=== PATIENT | female | born 1950 | race Caucasian/White ===

== ENCOUNTER 2021-07-08 20:34 | Emergency (ER) | payer MEDICARE, OTHER ==
[2021-07-08 21:44] VITALS: BP 138/69; PULSE 62
[2021-07-08] MEDS ORDERED: TORAdol 30 mg Injection ONE (21:45)
[2021-07-08 21:48] VITALS: O2SAT 98
--- NOTE | 2021-07-08 21:48 | ERPHSYRPT ---
- History of Present Illness Time Seen by Provider: 07/08/21 20:50 Source: patient Exam Limitations: no limitations Patient Subjective Stated Complaint: C/O pain in right wrist, fingers, lower arm. Describes pain as a "tingling" pain. States she fell at home trying to sit down on a computer chair that had sheets on it making it slick. States, "I heard a pop sound when my right arm hit the floor." Triage Nursing Assessment: Patient ambulated into ER without gait dysfunction noted. Patient is alert and oriented and answering questions appropriately. Right lower arm, wrist, and fingers are normal skin tone; no bruising, skin alterations, swelling, or warmth noted. Radial and Brachial pulses present to RUE. Patient with good capillary refill in fingertips to right hand. Patient is able to bend at the elbow and wiggle fingers without difficulties. She does c/o increased pain when bending at the elbow. Physician History: Patient is a 71-year-old female presents to our ED with complaints of pain to her right wrist and hand area. Patient states she fell off of her computer chair. She was rolling in her chair got caught on sheets that she fell backwards. Patient felt a pop upon impact. No other injuries reported. Pain described as an ache that is localized to her right wrist. Pain worse with movement and palpation. Pain improved with rest. No BHT or LOC. No neck pain. Cervical spine cleared clinically. Symptoms are mild to moderate in intensity. No specific worsening improving factors. Patient voices no other complaints or concerns at this time. Occurred: just prior to arrival Method of Injury: fell Quality: constant Severity of Pain-Max: moderate Severity of Pain-Current: mild Extremities Pain Location: wrist: right Modifying Factors: Improves With: movement Associated Symptoms: none Allergies/Adverse Reactions: Iodinated Contrast Media Allergy (Verified 07/08/21 21:08) levofloxacin [From Levaquin] Allergy (Verified 07/08/21 21:01) Penicillins Allergy (Verified 07/08/21 21:07) Anesthetics - Amide Type - Select A Adverse Reaction (Verified 07/08/21 21:08) latex Adverse Reaction (Verified 07/08/21 21:01) Hx Tetanus, Diphtheria Vaccination/Date Given: Yes Hx Influenza Vaccination/Date Given: No Hx Pneumococcal Vaccination/Date Given: Yes (2019) Immunizations Up to Date: Yes Travel Risk - International Travel Have you traveled outside of the country in past 3 weeks: No - Coronavirus Screening Are you exhibiting any of the following symptoms?: No Close contact with a COVID-19 positive Pt in past 14-21 Days: No - Vaccine Status Have you recieved a Covid-19 vaccination: Yes 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[employer]: [employer] - Vaccination Dates Date of 2cond Vaccination (if applicable): January - Review of Systems Constitutional: No Symptoms, No Fever, No Chills Eyes: No Symptoms Ears, Nose, & Throat: No Symptoms Respiratory: No Symptoms, No Cough, No Dyspnea Cardiac: No Symptoms, No Chest Pain, No Edema, No Syncope Abdominal/Gastrointestinal: No Symptoms, No Abdominal Pain, No Nausea, No Vomiting, No Diarrhea Genitourinary Symptoms: No Symptoms, No Dysuria Musculoskeletal: No Symptoms, No Back Pain, No Neck Pain Skin: No Symptoms, No Rash Neurological: No Symptoms, No Dizziness, No Focal Weakness, No Sensory Changes Psychological: No Symptoms Endocrine: No Symptoms Hematologic/Lymphatic: No Symptoms Immunological/Allergic: No Symptoms All Other Systems: Reviewed and Negative - Past Medical History Pertinent Past Medical History: Yes Neurological History: No Pertinent History ENT History: No Pertinent History Cardiac History: High Cholesterol, Hypertension Respiratory History: COPD Endocrine Medical History: No Pertinent History Musculoskeletal History: Fractures GI Medical History: No Pertinent History History: No Pertinent History Psycho-Social History: Anxiety, Panic Disorder Female Reproductive Disorders: No Pertinent History Other Medical History: R knee scope in 2009 - Past Surgical History Past Surgical History: Yes Neuro Surgical History: No Pertinent History Cardiac: No Pertinent History Respiratory: No Pertinent History Gastrointestinal: Appendectomy Genitourinary: No Pertinent History Musculoskeletal: No Pertinent History Female Surgical History: Hysterectomy - Social History Smoking Status: Former smoker Exposure to second hand smoke: No Drug Use: none Patient Lives Alone: No - Female History Hx Now: No - Nursing Vital Signs Nursing Vital Signs: Initial Vital Signs Temperature 98.3 F 07/08/21 20:44 Pulse Rate 70 07/08/21 20:44 Respiratory Rate 18 07/08/21 20:44 Blood Pressure 128/65 07/08/21 20:44 O2 Sat by Pulse Oximetry 98 07/08/21 20:44 Pain Scale Pain Intensity 9 - Physical Exam General Appearance: no apparent distress, alert Eyes, Ears, Nose, Throat Exam: moist mucous membranes Neck Exam: non-tender, supple, full range of motion Cardiovascular/Respiratory Exam: chest non-tender, normal breath sounds, regular rate/rhythm, no respiratory distress Abdominal Exam: non-tender, soft, No guarding Back Exam: normal inspection, normal range of motion, No vertebral tenderness Shoulder Exam: normal inspection, non-tender, no evidence of injury, normal ROM Elbow/Forearm Exam: normal inspection, non-tender, no evidence of injury, normal ROM Wrist Exam: bone tenderness, limited ROM, swelling (Right wrist over the distal radius is tender to palpation. Palpation reproduces pain. Overlying soft tissue intact. However there is swelling. Extremities neurovascular intact distally. Compartments are soft. Cap refill less than 2 seconds.) Hand Exam: normal inspection, non-tender, no evidence of injury, normal ROM Neuro/Tendon Exam: normal sensation, normal motor functions Mental Status Exam: alert, oriented x 3, cooperative Skin Exam: normal color, warm, dry SpO2 Interpretation: normal SpO2: 98 O2 Delivery: Room Air - Course Nursing assessment & vital signs reviewed: Yes - Radiology Exams Forearm X-ray Interpretation: Interpreted by me (Right distal radius fracture. Minimal displacement. Soft tissue swelling no dislocations.) Wrist X-ray Interpretation: Interpreted by me (Right distal radius fracture. Minimal displacement. Soft tissue swelling no dislocations.) Ordered Tests: Active Orders 24 hr Category Date Time Status FOREARM Stat Exams 07/08/21 21:04 Taken HAND (2 VIEW) Stat Exams 07/08/21 21:04 Taken Medication Summary Discontinued Medications Generic Name Dose Route Start Last Admin Trade Name Freq PRN Reason Stop Dose Admin Ketorolac Tromethamine Confirm 07/08/21 21:45 Toradol 30 Mg Injection Administered 07/08/21 21:46 Dose 30 mg .ROUTE .STK-MED ONE Ketorolac Tromethamine 30 mg 07/08/21 21:55 Toradol 30 Mg Injection IM 07/08/21 21:56 STAT ONE - Progress Progress: improved Progress Note: Patient reassessed. Patient received Toradol for pain control. Pain improved. X-ray shows a minimally displaced distal radius fracture. No indication for reduction. Patient placed in a sugar tong splint. Patient neurovascular intact post splint application. Patient referred to orthopedic clinic. Plan of care discussed with patient. She will follow-up as discussed. She voices no other complaints concerns at this time. Portions of this note were created with voice recognition technology. There may be grammatical, spelling, punctuation or sound alike errors 07/08/21 21:46 Counseled pt/family regarding: diagnosis, need for follow-up, rad results - Departure Departure Disposition: Home Clinical Impression: Distal radius fracture, right Condition: Stable Critical Care Time: No Referrals: ANDREW LIZ MD [Primary Care Provider] - Instructions: Radius Fracture (DC) Additional Instructions: Discharge/Care Plan TREVIN ACOSTA was seen on 07/08/21 in the Emergency Room. The patient was counseled regarding Diagnosis,Lab results, Imaging studies, need for follow up and when to return to the Emergency Room. Prescriptions given: Discharge Note I have spoken with the patient and/or caregivers. I have explained the patient's condition, diagnosis and treatment plan based on the information available to me at this time. I have answered the patient's and/or caregiver's questions and addressed any concerns. The patient and/or caregivers have as good understanding of the patient's diagnosis, condition and treatment plan as can be expected at this point. The vital signs have been stable. The patient's condition is stable and appropriate for discharge from the emergency department. The patient will pursue further outpatient evaluation with the primary care physician or other designated or consulting physician as outlined in the discharge instructions. The patient and/or caregivers are agreeable to this plan of care and follow-up instructions have been explained in detail. The patient and/or caregivers have received these instruction. The patient/and or caregivers are aware that any significant change in condition or worsening of symptoms should prompt an immediate return to this or the closest emergency department or call 911. Prescriptions: Ketorolac Tromethamine [Toradol] 10 mg PO TID 5 Days #15 tablet Outpatient Orders: Ortho Referral Time Frame: 1 Day, Facility: [facility] Hosp, Location: ORTHO CLINIC
[2021-07-08] MEDS ORDERED: TORAdol 30 mg Injection IM ONE (21:55)
--- NOTE | 2021-07-09 08:50 | XRAY ---
Indication: Pain following fall. Comparison: June 22, 2012. 2 view right forearm demonstrates new nondisplaced distal metadiaphysis radius cortical fracture. 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 No other bony, articular, or soft tissue abnormalities.
--- NOTE | 2021-07-09 08:52 | XRAY ---
Indication: Thumb pain following fall. Comparison: None. 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 No other bony, articular, or soft tissue abnormalities.
== END 2021-07-08 22:08 | disposition home or self-care (01) ==
LOC: ED 20:34
DX: S52.501A Unspecified fracture of the lower end of right radius, initial encounter for closed fracture (principal); M79.644 Pain in right finger(s); W07.XXXA Fall from chair, initial encounter
CPT/HCPCS: 29126; 73090; 73120; 96372; 99284; J1885